=== PATIENT | male | born 1970 | race Caucasian/White ===

== ENCOUNTER 2016-08-08 21:15 | Inpatient (IN) | payer BC ==
[2016-08-08] MEDS ORDERED: Nitroglycerin TAB 0.4 MG* 0.4 MG TAB ONE (21:59)
[2016-08-08] MEDS ORDERED: Ticagrelor* 90 MG TAB PO ONE ×2 (22:00→22:01)
[2016-08-08] MEDS ORDERED: nitroGLYCERIN DRIP* 0 ML ONE (22:00)
[2016-08-08] MEDS ORDERED: Aspirin Low Dose CHEW TAB* 81 MG ONE (22:00)
[2016-08-08] MEDS ORDERED: Heparin for STEMI(*) 5,000 UNITS/ML 1 ML VIAL IV ONE ×2 (22:00→22:01)
[2016-08-08] MEDS ORDERED: Aspirin Low Dose CHEW TAB* 81 MG PO ONE (22:01)
[2016-08-08 22:16] LABS: Hematocrit 42 % (42-52); Hemoglobin 14.2 g/dl (14.0-18.0); Mean Corpuscular HGB Conc 34 g/dl (31-36); Mean Corpuscular Hemoglobin 32 pg (27-31); Mean Corpuscular Volume 94 fL (80-94); Mean Platelet Volume 8 um3 (7.4-10.4); Red Blood Count 4.47 10^6/ul (4.0-5.4); Red Cell Distribution Width 13 % (10.5-15); White Blood Count 21.6 10^3/ul (3.5-10.8)
[2016-08-08 22:17] LABS: Add Diff/Slide Review? Manual Diff Added; Comments Flag Yes
[2016-08-08] MEDS ORDERED: fentaNYL* 50 MCG/ML 2 ML VIAL (100 MCG VIAL) ONE (22:17)
[2016-08-08] MEDS ORDERED: Midazolam* 1 MG/ML 5 ML VIAL (5 MG) ONE (22:17)
[2016-08-08] MEDS ORDERED: Iohexol 350 (CONTRAST) 200 ML MDV IV ONE (22:17)
[2016-08-08] MEDS ORDERED: Lidocaine 1% INJ* 10 MG/ML 30 ML SDV ONE (22:17)
[2016-08-08] MEDS ORDERED: Heparin 2 UNITS/ML IVPREMIX* 3,000 ML IV ONE (22:17)
[2016-08-08] MEDS ORDERED: nitroGLYCERIN DRIP* 250 ML ONE (22:18)
--- NOTE | 2016-08-08 22:27 | RAD ---
Indication: Mucous, chest pain. Single frontal view of the chest performed at 2217 hours was reviewed. Comparison is made with previous exam dated August 06, 2015. No mediastinal shift is noted. Heart is of normal size and configuration. Lung leslie appear clear. IMPRESSION: NO ACTIVE CARDIOPULMONARY DISEASE IS NOTED.
[2016-08-08 22:31] LABS: Albumin 3.9 g/dL (3.2-5.2); BUN/Creatinine Ratio 18.2 (8-20); Calcium 9.1 mg/dL (8.6-10.3); EGFR African American 120.4 (>60); EGFR Non-African American 93.6 (>60); Globulin 2.6 g/dL (2-4); Potassium 4.9 mmol/L (3.5-5.0); Total Bilirubin 0.8 mg/dL (0.2-1.0); Total Protein 6.5 g/dL (6.4-8.9)
[2016-08-08 22:36] LABS: Troponin I 0.06 ng/mL (<0.04)
[2016-08-08 22:37] LABS: Add Path Review? YES; Neutrophil % 92 % (38-83); Toxic Granulation 2+
--- NOTE | 2016-08-08 22:39 | ED ---
coleman Ho Timothy, scribed for Abhi Souza MD on 08/08/16 at 2202 . HPI Cardiac - HPI Summary HPI Summary: Luke Beavers Sr. is a 46 yo male presenting to [facility] with chest tightness since 0800 this morning accompanied by left leg and right arm numbness. He states he has a bad back and neck and assumed the numbness would resolve, but it has not. His MHx includes arthritis in his neck, spondylosis in his back, asthma, COPD, tobacco use. He has not been able to afford inhalers. - History of Current Complaint Chief Complaint: EDUpperRespComplaint Stated Complaint: CHEST TIGHT/LT LEG RT ARM NUMBNESS Time Seen by Provider: 08/08/16 21:57 Hx Obtained From: Patient Onset/Duration: Started Hours Ago Time of Onset: 08:00 Timing: Constant Initial Severity: Moderate Current Severity: Moderate Pain Intensity: 0 Pain Scale Used: 0-10 Numeric Chest Pain Location: Diffuse Chest Pain Radiates: No Character: Tightness Aggravating Factor(s): Nothing Alleviating Factor(s): Nothing Associated Signs and Symptoms: Positive: Chest Pain - tightness, Numbness - left leg and right arm - Allergy/Home Medications Allergies/Adverse Reactions: Allergies Allergy/AdvReac Type Severity Reaction Status Date / Time Sulfa Antibiotics Allergy Intermediate Unknown Verified 08/08/16 21:24 Reaction Details Home Medications: Home Medications NK [No Home Medications Reported] 08/08/16 [History Confirmed 08/08/16] PMH/Surg Hx/FS Hx/Imm Hx Endocrine/Hematology History: Denies: Hx Diabetes Cardiovascular History: Denies: Hx Hypertension, Hx Myocardial Infarction Psychiatric History: Denies: Hx Eating Disorder, Hx of Violent Episodes Against Others - Immunization History Date of Tetanus Vaccine: unknown Infectious Disease History: No Infectious Disease History: Denies: Traveled Outside the [place] in Last 30 Days - Family History Known Family History: Positive: Cardiac Disease - Social History Alcohol Use: Weekly Substance Use Type: Reports: None, Other Substance Use Comment - Amount & Last Used: unknown Smoking Status (MU): Heavy Every Day Tobacco Smoker Review of Systems Constitutional: Negative Eyes: Negative ENT: Negative Positive: Chest Pain - chest tightness Respiratory: Negative Gastrointestinal: Negative Genitourinary: Negative Musculoskeletal: Negative Skin: Negative Positive: Numbness - left leg, right arm Psychological: Normal All Other Systems Reviewed And Are Negative: Yes NIH Scale - NIH Scale Level of Consciousness: Alert/Keenly Responsive Ask Patient the Month and His/Her Age: Both Correct Ask Pt to Open/Close Eyes and Marketing Operations Specialist/Release Non-Paretic Hand: Both Correctly Best Gaze (Only Horizontal Eye Movement): Normal Visual Field Testing: No Visual Loss Facial Paresis-Pt to Smile & Close Eyes or Grimace Symmetry: Normal/Symmetrical Physical Exam Triage Information Reviewed: Yes Vital Signs On Initial Exam: Initial Vitals Temp Pulse Resp BP Pulse Ox 99.1 F 89 15 146/88 99 08/08/16 21:18 08/08/16 21:18 08/08/16 21:18 08/08/16 21:18 08/08/16 21:18 Vital Signs Reviewed: Yes Appearance: Positive: Ill-Appearing, Pain Distress - mild discomfort, Thin Skin: Positive: Warm, Dry Head/Face: Positive: Normal Head/Face Inspection Eyes: Positive: JENNIE ENT: Positive: Hearing grossly normal Neck: Positive: Supple Respiratory/Lung Sounds: Positive: Clear to Auscultation, Breath Sounds Present Cardiovascular: Positive: RRR Abdomen Description: Positive: Nontender, Soft Bowel Sounds: Positive: Present Musculoskeletal: Positive: Strength/ROM Intact Neurological: Positive: Alert, Oriented to Person Place, Time Psychiatric: Positive: Affect/Mood Appropriate Diagnostics - Vital Signs Vital Signs Temp Pulse Resp BP Pulse Ox 08/08/16 21:21 99.1 F 90 14 146/88 99 08/08/16 21:18 99.1 F 89 15 146/88 99 - Laboratory Lab Results: Lab Results 08/08/16 08/08/16 08/08/16 Range/Units 22:05 22:05 22:05 WBC 21.6 H (3.5-10.8) 10^3/ul RBC 4.47 (4.0-5.4) 10^6/ul Hgb 14.2 (14.0-18.0) g/dl Hct 42 (42-52) % MCV 94 (80-94) fL MCH 32 H (27-31) pg MCHC 34 (31-36) g/dl RDW 13 (10.5-15) % Plt Count 368 (150-450) 10^3/ul MPV 8 (7.4-10.4) um3 Absolute Neuts (auto) Pending Absolute Lymphs (auto) Pending Absolute Monos (auto) Pending Absolute Eos (auto) Pending Absolute Basos (auto) Pending Absolute Nucleated RBC Pending Neutrophils % 92 H (38-83) % Lymphocytes % 4 L (25-47) % Monocytes % 4 (0-13) % Toxic Granulation 2+ Normal RBC Morphology Not Reportable Hem Pathologist Commnt Pending INR (Anticoag Therapy) 0.99 (0.89-1.11) APTT 21.8 L (26.0-36.3) seconds Sodium 134 (133-145) mmol/L Potassium 4.9 (3.5-5.0) mmol/L Chloride 99 L (101-111) mmol/L Carbon Dioxide 29 (22-32) mmol/L Anion Gap 6 (2-11) mmol/L BUN 16 (6-24) mg/dL Creatinine 0.88 (0.67-1.17) mg/dL Est GFR ( Amer) 120.4 (>60) Est GFR (Non-Af Amer) 93.6 (>60) BUN/Creatinine Ratio 18.2 (8-20) Glucose 117 H (70-100) mg/dL Lactic Acid (0.5-2.0) mmol/L Calcium 9.1 (8.6-10.3) mg/dL Total Bilirubin 0.80 (0.2-1.0) mg/dL AST 96 H (13-39) U/L ALT 47 (7-52) U/L Alkaline Phosphatase 58 (34-104) U/L Total Creatine Kinase Pending CK-MB (CK-2) 84.8 H (0.6-6.3) ng/mL Troponin I 0.06 H* (<0.04) ng/mL B-Natriuretic Peptide ( - 100) pg/mL Total Protein 6.5 (6.4-8.9) g/dL Albumin 3.9 (3.2-5.2) g/dL Globulin 2.6 (2-4) g/dL Albumin/Globulin Ratio 1.5 (1-3) LDL Cholesterol Direct 78 mg/dL 08/08/16 08/08/16 Range/Units 22:05 22:05 WBC (3.5-10.8) 10^3/ul RBC (4.0-5.4) 10^6/ul Hgb (14.0-18.0) g/dl Hct (42-52) % MCV (80-94) fL MCH (27-31) pg MCHC (31-36) g/dl RDW (10.5-15) % Plt Count (150-450) 10^3/ul MPV (7.4-10.4) um3 Absolute Neuts (auto) Absolute Lymphs (auto) Absolute Monos (auto) Absolute Eos (auto) Absolute Basos (auto) Absolute Nucleated RBC Neutrophils % (38-83) % Lymphocytes % (25-47) % Monocytes % (0-13) % Toxic Granulation Normal RBC Morphology Hem Pathologist Commnt INR (Anticoag Therapy) (0.89-1.11) APTT (26.0-36.3) seconds Sodium (133-145) mmol/L Potassium (3.5-5.0) mmol/L Chloride (101-111) mmol/L Carbon Dioxide (22-32) mmol/L Anion Gap (2-11) mmol/L BUN (6-24) mg/dL Creatinine (0.67-1.17) mg/dL Est GFR ( Amer) (>60) Est GFR (Non-Af Amer) (>60) BUN/Creatinine Ratio (8-20) Glucose (70-100) mg/dL Lactic Acid 1.8 (0.5-2.0) mmol/L Calcium (8.6-10.3) mg/dL Total Bilirubin (0.2-1.0) mg/dL AST (13-39) U/L ALT (7-52) U/L Alkaline Phosphatase (34-104) U/L Total Creatine Kinase CK-MB (CK-2) (0.6-6.3) ng/mL Troponin I (<0.04) ng/mL B-Natriuretic Peptide 126 H ( - 100) pg/mL Total Protein (6.4-8.9) g/dL Albumin (3.2-5.2) g/dL Globulin (2-4) g/dL Albumin/Globulin Ratio (1-3) LDL Cholesterol Direct mg/dL Result Diagrams: 08/09/16 04:15 08/09/16 04:15 Lab Statement: Any lab studies that have been ordered have been reviewed, and results considered in the medical decision making process. - Radiology CXR Xray Interpretation: No Acute Changes - IMPRESSION: NO ACTIVE CARDIOPULMONARY DISEASE IS NOTED. Radiology Interpretation Completed By: Radiologist - EKG 2153 Cardiac Rate: NL - 80 BPM EKG Interpretation: ST elevation V2 V3, STEMI. Disposition - Course Assessment/Plan: Luke Beavers Sr is a 46 yo male [place] [facility] [place] with chest tightness and numbness in his right arm and left leg. His EKG suggests a STEMI, and a code STEMI was called at 2200. He was immediately administered aspirin, heparin, NTG, and Brilinta. His CXR suggests no acute disease. After clinical examination and review of his EKG, imaging, and lab studies, as well as discussion with Dr. Gomez, he will be admitted to [facility] [place] for [place]. - Differential Dx - Cardiopulmonary Differential Diagnoses - Cardiopulmonary: Myocardial Infarction, Other - STEMI - Diagnoses Provider Diagnoses: STEMI (ST elevation myocardial infarction) During the Visit The Following Alert/Code Occurred: STEMI - Physician Notifications Discussed Care Of Patient With: 2220 - Dr. oGmez (interventionalist) - discussed care of Pt, will admit Pt for STEMI. Instructed by Provider To: Admit As Inpatient - Critical Care Time Critical Care Time: 30-74 min Discharge - Discharge Plan Condition: Fair Disposition: ADMITTED TO [facility] The documentation as recorded by the coleman huerta Timothy accurately reflects the service I personally performed and the decisions made by me, Abhi Souza MD.
[2016-08-08] MEDS: NS 0.9% 1000 ML* 1,000 ML IV SCH (23:45)
[2016-08-09] MEDS ORDERED: Piperac/Tazob 3.375 gm in NS* 3.375 GM/100 ML BAG IVPB ONE (00:30)
--- NOTE | 2016-08-09 00:50 | HP ---
H&P (Free Text) History and Physical: PCP: none Date/Time of Evaluation: 08/09/2016 0015 CC: chest pain HPI: Mr Beavers is a 46YO male HX COPD & ankylosing spondylitis who reports feeling poorly for the past week primarily from fatigue and cannot further characterize. He awoke this AM with (not from) non-radiating R chest pressure which waxed and waned all day. He had some palpitations, but denies SOB, N/V, light-headedness, or sweats. Additionally, he denies F/C, worsened cough, abdominal pain, B/U/F of urine, change in bowels, and flank pain. The pain is worse with cough, palpation, & deep inspiration. [facility] [place] [facility] at the encouragement of his girlfriend shortly after 2100. ECG showed ST elevation in the anterior leads and a STEMI was called. Troponin is 0.07. Carmelo Gomez MD interventional cardiology took him to cardiac cath noting spasm at the ostomy of the LAD resolved with nitro. Post-cath, Mr Beavers's ECG showed noticeable improvement. Per Dr Gomez a bedside ECHO showed global hypokinesia of the L ventrical and EF on cath was estimated to be 35-40%. 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; full code status FamHx: Father: [place] prior to age 65; otherwise positive for DM2 ROS: as above, otherwise reviewed and all were negative Constitutional: NAD, normally developed, well-nourished, unkempt white male appearing older than his stated age vitals: Vital Signs Temp 37.3 C 08/08/16 21:21 Pulse 90 08/08/16 21:21 Resp 14 08/08/16 21:21 BP 146/88 08/08/16 21:21 Pulse Ox 99 08/08/16 21:21 Intake & Output 08/08/16 08/08/16 08/09/16 11:59 23:59 11:59 Weight 63.503 kg HEENM: atraumatic; sclera/conjunctiva: non-icteric/clear; hearing: clinically intact; oropharynx: clear, mucosa moist Neck: soft tissue: non-tender; thyroid: normal Pulmonary: clear to auscultation bilaterally, good aeration, no accessory muscle use CV: RR/RR, normal S1S2, no carotid bruit, no jugular venous distention, 2+ B DP/ PT, no edema Abdominal: soft, non-distended, non-tender, no rebound/guarding/rigidity, normoactive bowel sounds, no hepatosplenomegaly or masses, no costovertebral angle tenderness Musculoskeletal: general: grossly intact; gait: currently unable to ambulate 2nd being immediately post-cath Integumental: normal appearance and texture of exposed skin Psychiatric orientation: AA&O to PPS affect: calm mood: cooperative eye contact: fair to good content: reliable responses: timely insight: fair Testing: Lab Results 08/08/16 08/08/16 08/08/16 Range/Units 22:05 22:05 22:05 WBC 21.6 H (3.5-10.8) 10^3/ul RBC 4.47 (4.0-5.4) 10^6/ul Hgb 14.2 (14.0-18.0) g/dl Hct 42 (42-52) % MCV 94 (80-94) fL MCH 32 H (27-31) pg MCHC 34 (31-36) g/dl RDW 13 (10.5-15) % Plt Count 368 (150-450) 10^3/ul MPV 8 (7.4-10.4) um3 Absolute Neuts (auto) 19.9 H (1.5-7.7) 10^3/ul Absolute Lymphs (auto) 0.9 L (1.0-4.8) 10^3/ul Absolute Monos (auto) 0.9 H (0-0.8) 10^3/ul Absolute Eos (auto) 0 (0-0.6) 10^3/ul Absolute Basos (auto) 0 (0-0.2) 10^3/ul Absolute Nucleated RBC 0 10^3/ul Neutrophils % 92 H (38-83) % Lymphocytes % 4 L (25-47) % Monocytes % 4 (0-13) % Toxic Granulation 2+ Normal RBC Morphology Not Reportable Hem Pathologist Commnt Pending INR (Anticoag Therapy) 0.99 (0.89-1.11) APTT 21.8 L (26.0-36.3) seconds Sodium 134 (133-145) mmol/L Potassium 4.9 (3.5-5.0) mmol/L Chloride 99 L (101-111) mmol/L Carbon Dioxide 29 (22-32) mmol/L Anion Gap 6 (2-11) mmol/L BUN 16 (6-24) mg/dL Creatinine 0.88 (0.67-1.17) mg/dL Est GFR ( Amer) 120.4 (>60) Est GFR (Non-Af Amer) 93.6 (>60) BUN/Creatinine Ratio 18.2 (8-20) Glucose 117 H (70-100) mg/dL Lactic Acid (0.5-2.0) mmol/L Calcium 9.1 (8.6-10.3) mg/dL Total Bilirubin 0.80 (0.2-1.0) mg/dL AST 96 H (13-39) U/L ALT 47 (7-52) U/L Alkaline Phosphatase 58 (34-104) U/L Total Creatine Kinase 3527 H (10-223) U/L CK-MB (CK-2) 84.8 H (0.6-6.3) ng/mL Troponin I 0.06 H* (<0.04) ng/mL B-Natriuretic Peptide ( - 100) pg/mL Total Protein 6.5 (6.4-8.9) g/dL Albumin 3.9 (3.2-5.2) g/dL Globulin 2.6 (2-4) g/dL Albumin/Globulin Ratio 1.5 (1-3) LDL Cholesterol Direct 78 mg/dL 08/08/16 08/08/16 Range/Units 22:05 22:05 WBC (3.5-10.8) 10^3/ul RBC (4.0-5.4) 10^6/ul Hgb (14.0-18.0) g/dl Hct (42-52) % MCV (80-94) fL MCH (27-31) pg MCHC (31-36) g/dl RDW (10.5-15) % Plt Count (150-450) 10^3/ul MPV (7.4-10.4) um3 Absolute Neuts (auto) (1.5-7.7) 10^3/ul Absolute Lymphs (auto) (1.0-4.8) 10^3/ul Absolute Monos (auto) (0-0.8) 10^3/ul Absolute Eos (auto) (0-0.6) 10^3/ul Absolute Basos (auto) (0-0.2) 10^3/ul Absolute Nucleated RBC 10^3/ul Neutrophils % (38-83) % Lymphocytes % (25-47) % Monocytes % (0-13) % Toxic Granulation Normal RBC Morphology Hem Pathologist Commnt INR (Anticoag Therapy) (0.89-1.11) APTT (26.0-36.3) seconds Sodium (133-145) mmol/L Potassium (3.5-5.0) mmol/L Chloride (101-111) mmol/L Carbon Dioxide (22-32) mmol/L Anion Gap (2-11) mmol/L BUN (6-24) mg/dL Creatinine (0.67-1.17) mg/dL Est GFR ( Amer) (>60) Est GFR (Non-Af Amer) (>60) BUN/Creatinine Ratio (8-20) Glucose (70-100) mg/dL Lactic Acid 1.8 (0.5-2.0) mmol/L Calcium (8.6-10.3) mg/dL Total Bilirubin (0.2-1.0) mg/dL AST (13-39) U/L ALT (7-52) U/L Alkaline Phosphatase (34-104) U/L Total Creatine Kinase (10-223) U/L CK-MB (CK-2) (0.6-6.3) ng/mL Troponin I (<0.04) ng/mL B-Natriuretic Peptide 126 H ( - 100) pg/mL Total Protein (6.4-8.9) g/dL Albumin (3.2-5.2) g/dL Globulin (2-4) g/dL Albumin/Globulin Ratio (1-3) LDL Cholesterol Direct mg/dL ECG, personally reviewed: NSR rate 80, marked improvement in anterior ST elevation post-cath, no reciprocal changes CXR, personally reviewed: IMPRESSION: NO ACTIVE CARDIOPULMONARY DISEASE IS NOTED. Impression: 46M presents with ECG concerning for STEMI after a week of vague illness, cath revealed clean vessels but identified LAD ostomy spasm relieved with nitro DIAGNOSIS & PLAN Primary chest pain : suspect cocaine induced spasm : check urine drug screen : plan on starting carvedilol 3.125mg BID if UDS negative for cocaine : consider initiating low dose ACEI in AM, if BP will tolerate : formal ECHO in AM : nitro patch 0.1 : cardiology service agrees to follow : supplemental oxygen : supportive care : ICU monitoring : trend cardiac markers leukocytosis : ? etiology : empiric piperacillin/tazobactam : blood CXs Secondary COPD, not in exacerbation : albuterol nebs PRN : mometasone/formoterol : tiotropium : incentive spirometry ankylosing spondylitis : pain control Admission Rational: ICU monitoring of cardiac status in patient at risk for sudden severe decompensation DVTp: SCDs Code Status: full
[2016-08-09] MEDS ORDERED: Albuterol 2.5 MG/3 ML NEB.SOL* (0.083%) INH PRN (00:53)
[2016-08-09] MEDS ORDERED: traMADol TAB* 50 MG PO PRN (00:55)
[2016-08-09 00:59] LABS: Benzodiazepine Urine Screen None Detected (None Detect)
[2016-08-09] MEDS ORDERED: Spiriva Inhaler DEVICE* 1 EACH DEVICE ONE (01:00)
[2016-08-09] MEDS: Nitroglycerin 0.1 mg/Hr PATCH* (2.5 MG) TRANSDERM SCH ×2 (02:24→08:22)
[2016-08-09] MEDS: Mometasone/Formoter 200/5 MDI INH SCH ×3 (02:27→20:35)
[2016-08-09] MEDS: Tiotropium CAP.INH* CAP.INH/18 MCG INH SCH ×2 (02:28→08:22)
[2016-08-09 04:29] LABS: Add Diff/Slide Review? Slide Review Added; Comments Flag Yes; Hematocrit 39 % (42-52); Hemoglobin 13.5 g/dl (14.0-18.0); Mean Corpuscular HGB Conc 35 g/dl (31-36); Mean Corpuscular Hemoglobin 32 pg (27-31); Mean Corpuscular Volume 93 fL (80-94); Mean Platelet Volume 8 um3 (7.4-10.4); Red Blood Count 4.22 10^6/ul (4.0-5.4); Red Cell Distribution Width 13 % (10.5-15); White Blood Count 14.3 10^3/ul (3.5-10.8)
[2016-08-09] MEDS ORDERED: Piperac/Tazob 3.375 gm in NS* 3.375 GM/100 ML BAG IVPB SCH (04:30)
[2016-08-09 04:43] LABS: Albumin 3.6 g/dL (3.2-5.2); BUN/Creatinine Ratio 18.9 (8-20); Calcium 8.6 mg/dL (8.6-10.3); EGFR African American 147.1 (>60); EGFR Non-African American 114.4 (>60); Globulin 2.2 g/dL (2-4); Potassium 4.2 mmol/L (3.5-5.0); Total Bilirubin 0.9 mg/dL (0.2-1.0); Total Protein 5.8 g/dL (6.4-8.9)
[2016-08-09 04:50] LABS: Troponin I 0.06 ng/mL (<0.04)
[2016-08-09] MEDS: Lisinopril TAB* 5 MG PO SCH (09:27)
--- NOTE | 2016-08-09 09:48 | PN ---
Subjective Date of Service: 08/09/16 Interval History: Pt is feeling ok this AM. He states he still has low level chest discomfort. He still claims he did not use cocaine but someone must have "slipped" him something. Objective Active Medications: Albuterol (Ventolin 2.5 Mg/3 Ml Neb.Hannah*) 2.5 mg INH Q2H PRN PRN Reason: SOB/WHEEZING Sodium Chloride (Ns 0.9% 1000 Ml*) 1,000 mls @ 100 mls/hr IV .per rate [facility] Last Admin: 08/08/16 23:45 Dose: 100 mls/hr Piperacillin Sod/Tazobactam Sod (Zosyn 3.375 Gm In Ns Premix*) 3.375 gm in 100 mls @ 25 mls/hr IVPB Q8H [facility] Last Admin: 08/09/16 04:41 Dose: 25 mls/hr Lisinopril (Prinivil Tab*) 5 mg PO DAILY [facility] Last Admin: 08/09/16 09:27 Dose: 5 mg Mometasone Furoate/Formoterol Fumar (Dulera 200/5 Mdi*) 2 puff INH BID [facility] Last Admin: 08/09/16 08:21 Dose: 2 puff Nitroglycerin (Nitroglycerin 2.5 Mg Patch*) 1 patch TRANSDERM DAILY [facility] Last Admin: 08/09/16 08:22 Dose: 1 patch Pharmacy Profile Note (Nitro Patch/Oint Remove*) 1 note PATCH OFF 2100 [facility] Tiotropium [place] (Spiriva Cap.Inh*) 1 cap INH DAILY [facility] Last Admin: 08/09/16 08:22 Dose: 1 cap Tramadol HCl (Ultram*) 50 mg PO Q6H PRN PRN Reason: PAIN Last Admin: 08/09/16 04:59 Dose: 50 mg Vital Signs 08/09/16 08/09/16 08/09/16 00:00 00:10 00:30 Temperature 98.8 F Pulse Rate 99 86 81 Respiratory 20 21 19 Rate Blood Pressure 143/92 137/85 132/87 (mmHg) O2 Sat by Pulse 95 94 96 Oximetry 08/09/16 08/09/16 08/09/16 01:00 01:30 02:00 Temperature Pulse Rate 75 75 77 Respiratory 13 13 16 Rate Blood Pressure 138/88 122/80 132/81 (mmHg) O2 Sat by Pulse 95 95 92 Oximetry 08/09/16 08/09/16 08/09/16 02:30 03:00 03:30 Temperature Pulse Rate 81 79 75 Respiratory 15 15 14 Rate Blood Pressure 123/84 133/84 135/83 (mmHg) O2 Sat by Pulse 95 95 94 Oximetry 08/09/16 08/09/16 08/09/16 04:00 04:30 05:00 Temperature 99.3 F Pulse Rate 79 89 85 Respiratory 15 17 22 Rate Blood Pressure 128/84 125/76 130/80 (mmHg) O2 Sat by Pulse 94 95 96 Oximetry 08/09/16 08/09/16 08/09/16 06:00 07:00 07:35 Temperature Pulse Rate 75 80 Respiratory 14 14 12 Rate Blood Pressure 118/70 130/83 (mmHg) O2 Sat by Pulse 93 92 Oximetry 08/09/16 08/09/16 08/09/16 08:00 08:11 08:50 Temperature 98.4 F Pulse Rate 72 73 Respiratory 13 14 14 Rate Blood Pressure 131/89 (mmHg) O2 Sat by Pulse 96 98 Oximetry 08/09/16 09:00 Temperature Pulse Rate 69 Respiratory 13 Rate Blood Pressure 127/84 (mmHg) O2 Sat by Pulse 95 Oximetry Oxygen Devices in Use Now: None Appearance: Middle aged male who appears older than his stated age, sitting up in bed, NAD Eyes: No Scleral Icterus Ears/Nose/Mouth/Throat: Mucous Membranes Moist Respiratory: Symmetrical Chest Expansion and Respiratory Effort, Clear to Auscultation Cardiovascular: NL Sounds; No Murmurs; No JVD, RRR, No Edema Abdominal: NL Sounds; No Tenderness; No Distention Extremities: No Clubbing, Cyanosis Skin: No Rash or Ulcers, No Nodules or Sclerosis Neurological: Alert and Oriented x 3 Result Diagrams: 08/09/16 04:15 08/09/16 04:15 Additional Lab and Data: Lab Results 08/08/16 08/08/16 08/08/16 Range/Units 22:05 22:05 22:05 WBC 21.6 H (3.5-10.8) 10^3/ul RBC 4.47 (4.0-5.4) 10^6/ul Hgb 14.2 (14.0-18.0) g/dl Hct 42 (42-52) % MCV 94 (80-94) fL MCH 32 H (27-31) pg MCHC 34 (31-36) g/dl RDW 13 (10.5-15) % Plt Count 368 (150-450) 10^3/ul MPV 8 (7.4-10.4) um3 Absolute Neuts (auto) Pending Absolute Lymphs (auto) Pending Absolute Monos (auto) Pending Absolute Eos (auto) Pending Absolute Basos (auto) Pending Absolute Nucleated RBC Pending Neutrophils % 92 H (38-83) % Lymphocytes % 4 L (25-47) % Monocytes % 4 (0-13) % Toxic Granulation 2+ Normal RBC Morphology Not Reportable Hem Pathologist Commnt Pending INR (Anticoag Therapy) 0.99 (0.89-1.11) APTT 21.8 L (26.0-36.3) seconds Sodium 134 (133-145) mmol/L Potassium 4.9 (3.5-5.0) mmol/L Chloride 99 L (101-111) mmol/L Carbon Dioxide 29 (22-32) mmol/L Anion Gap 6 (2-11) mmol/L BUN 16 (6-24) mg/dL Creatinine 0.88 (0.67-1.17) mg/dL Est GFR ( Amer) 120.4 (>60) Est GFR (Non-Af Amer) 93.6 (>60) BUN/Creatinine Ratio 18.2 (8-20) Glucose 117 H (70-100) mg/dL Lactic Acid (0.5-2.0) mmol/L Calcium 9.1 (8.6-10.3) mg/dL Total Bilirubin 0.80 (0.2-1.0) mg/dL AST 96 H (13-39) U/L ALT 47 (7-52) U/L Alkaline Phosphatase 58 (34-104) U/L Total Creatine Kinase Pending CK-MB (CK-2) 84.8 H (0.6-6.3) ng/mL Troponin I 0.06 H* (<0.04) ng/mL B-Natriuretic Peptide ( - 100) pg/mL Total Protein 6.5 (6.4-8.9) g/dL Albumin 3.9 (3.2-5.2) g/dL Globulin 2.6 (2-4) g/dL Albumin/Globulin Ratio 1.5 (1-3) LDL Cholesterol Direct 78 mg/dL 08/08/16 08/08/16 Range/Units 22:05 22:05 WBC (3.5-10.8) 10^3/ul RBC (4.0-5.4) 10^6/ul Hgb (14.0-18.0) g/dl Hct (42-52) % MCV (80-94) fL MCH (27-31) pg MCHC (31-36) g/dl RDW (10.5-15) % Plt Count (150-450) 10^3/ul MPV (7.4-10.4) um3 Absolute Neuts (auto) Absolute Lymphs (auto) Absolute Monos (auto) Absolute Eos (auto) Absolute Basos (auto) Absolute Nucleated RBC Neutrophils % (38-83) % Lymphocytes % (25-47) % Monocytes % (0-13) % Toxic Granulation Normal RBC Morphology Hem Pathologist Commnt INR (Anticoag Therapy) (0.89-1.11) APTT (26.0-36.3) seconds Sodium (133-145) mmol/L Potassium (3.5-5.0) mmol/L Chloride (101-111) mmol/L Carbon Dioxide (22-32) mmol/L Anion Gap (2-11) mmol/L BUN (6-24) mg/dL Creatinine (0.67-1.17) mg/dL Est GFR ( Amer) (>60) Est GFR (Non-Af Amer) (>60) BUN/Creatinine Ratio (8-20) Glucose (70-100) mg/dL Lactic Acid 1.8 (0.5-2.0) mmol/L Calcium (8.6-10.3) mg/dL Total Bilirubin (0.2-1.0) mg/dL AST (13-39) U/L ALT (7-52) U/L Alkaline Phosphatase (34-104) U/L Total Creatine Kinase CK-MB (CK-2) (0.6-6.3) ng/mL Troponin I (<0.04) ng/mL B-Natriuretic Peptide 126 H ( - 100) pg/mL Total Protein (6.4-8.9) g/dL Albumin (3.2-5.2) g/dL Globulin (2-4) g/dL Albumin/Globulin Ratio (1-3) LDL Cholesterol Direct mg/dL Microbiology and Other Data: Microbiology 08/09/16 03:00 Nasal Screen MRSA (PCR)([facility]) - Final Nasal Mrsa Negative Assess/Plan/Problems-Billing Mr Beavers is a 46 yo M who has a h/o tobacco abuse, COPD and ankylosing spondylitis who presented to the ER with chest pain and was found to have ST elevatations concerning for STEMI. - Patient Problems (1) Coronary artery vasospasm Current Visit: Yes Status: Acute Code(s): I20.1 - ANGINA PECTORIS WITH DOCUMENTED SPASM SNOMED Code(s): 44893589 Comment: The patient was found to have coronary artery vasospasm of the ostium of the LAD. His urine drug screen was positive for cocaine. I suspect the spasm was secondary to the cocaine. Echo results are pending. Transfer to [facility]. Start lisinopril. Monitor again overnight. Will discuss with Dr. Gomez about how long to continue the nitro patch. (2) COPD (chronic obstructive pulmonary disease) Current Visit: Yes Status: Acute Code(s): J44.9 - CHRONIC OBSTRUCTIVE PULMONARY DISEASE, UNSPECIFIED SNOMED Code(s): 30908293 Comment: No signs of exacerbation at this time. Continue inhaler/neb regimen. (3) Tobacco abuse Current Visit: Yes Status: Acute Code(s): Z72.0 - TOBACCO USE SNOMED Code( s): 108087068 Comment: Pt states he has been trying to quit. Continue to encourage smoking cessation. (4) Ankylosing spondylitis Current Visit: Yes Status: Acute Code(s): M45.9 - ANKYLOSING SPONDYLITIS OF UNSPECIFIED SITES IN SPINE SNOMED Code(s): 5651017 Comment: Pt does not appear to be on any therapy for this. (5) DVT prophylaxis Current Visit: Yes Status: Acute Code(s): NFN8046 - SNOMED Code(s): 029373351 Comment: Start SQ heparin (6) Full code status Current Visit: Yes Status: Acute Code(s): Z78.9 - OTHER SPECIFIED HEALTH STATUS SNOMED Code(s): 920750276
[2016-08-09 10:22] LABS: Troponin I 0.04 ng/mL (<0.04)
--- NOTE | 2016-08-09 11:50 | ECHO ---
Patient: RICHARD LANDIN [facility] Rec#: [id number] : 1970 Date: 08/09/2016 Age: 46y Height: 167.64 cm / 66.0 in Weight: 63.5 kg / 140.0 lbs Sex: M BSA: 1.72 Room#: [facility] 11 Admit Date#: 08/08/2016 Type: Inpatient Referring: Garrett Weiss MD Reading: Kwaku Gomez MD [employer] Set Up Operator: Page Potter RD,RDMS Transthoracic Echocardiogram Indication: Cardiomyopathy BP: 118/70 HR: 74 Rhythm: NSR Indications Cardiomyopathy Findings History: S/P cath. COPD, ankylosing spodilitis, smoker. Technical Comments: The study quality is good. Left Ventricle: The left ventricular chamber size is normal. Mild concentric left ventricular hypertrophy is observed. Mild global hypokinesis of the left ventricle is observed. There is mildly decreased left ventricular systolic function. The estimated ejection fraction is 40-45%. Normal left ventricular diastolic filling is observed. Left Atrium: The left atrium is slightly dilated. Right Ventricle: The right ventricular chamber size and systolic function are within normal limits. Right Atrium: The right atrial cavity size is normal. Aortic Valve: The aortic valve is trileaflet. There is a trace of aortic regurgitation. There is no evidence of aortic stenosis. Mitral Valve: The mitral valve leaflets are mildly thickened. There is no evidence of mitral regurgitation. There is no evidence of mitral stenosis. Tricuspid Valve: The tricuspid valve leaflets are normal. There is trace tricuspid regurgitation. Unable to estimate the right ventricular systolic pressure. Pulmonic Valve: The pulmonic valve appears normal. There is a trace pulmonic regurgitation. Pericardium: There is no significant pericardial effusion. Aorta: The aortic root appears normal. There is no dilatation of the aortic arch. Pulmonary Artery: The main pulmonary artery is not well visualized. Venous: The inferior vena cava is dilated. There is an approximate 50% respiratory change in the inferior vena cava dimension. Conclusions Mild concentric left ventricular hypertrophy is observed. Mild global hypokinesis of the left ventricle is observed. There is mildly decreased left ventricular systolic function. The estimated ejection fraction is 40-45%. No significant valvular disease: There is a trace of aortic regurgitation. There is trace tricuspid regurgitation. There is a trace pulmonic regurgitation. No reports of prior studies offered for comparison Measurements Name Value Normal Range Ao root diameter (MM) 2 cm - LA dimension (AP) MM 2.78 cm - LA:Ao ratio (MM) 1.39 ratio - Name Value Normal Range RVIDd (AP) 2D 2.8 cm (0.9 - 2.6) RVDdMajor (2D) 2.8 cm (2.2 - 4.4) RAd ISD 4CH 3.9 cm (3.4 - 4.9) RA (A4C)W 3.7 cm (2.9 - 4.6) IVSd (2D) 1.1 cm (0.6 - 1) LVPWd (2D) 1.2 cm (0.6 - 1) LVIDd (2D) 4.6 cm (3.6 - 5.4) LVIDs (2D) 4.1 cm - LV FS (2D) 13 % (25 - 45) Aortic Annulus 2.1 cm (1.4 - 2.6) Ao root diameter (2D) 3.2 cm (2.1 - 3.5) Ascending Ao 2.8 cm (2.1 - 3.4) Aortic arch 3.2 cm (1.8 - 3.4) LA dimension (AP) 2D 3 cm (2.3 - 3.8) LAd ISD 4CH 4.4 cm (2.9 - 5.3) LA ISD 4CH W 4.9 cm (2.5 - 4.5) Name Value Normal Range LA ESV SP 4CH (A/L) 64.57 ml - LA ESV SP 2CH (A/L) 41.38 ml - LA ESV BP (A/L) 54.82 ml - LA ESV BP (A/L) index 32 ml/m2 - LA ESV SP 4CH (MOD) 55.05 ml - LA ESV SP 2CH (MOD) 35.18 ml - Name Value Normal Range MV E-wave Vmax 0.6 m/sec - MV deceleration time 137 msec - MV A-wave Vmax 0.4 m/sec - MV E:A ratio 1.3 ratio - P. vein S-wave Vmax 0.5 m/sec - P. vein D-wave Vmax 0.4 m/sec - P. vein A-wave duration 90 msec - LV septal e' Vmax 0.08 m/sec - LV lateral e' Vmax 0.1 m/sec - LV E:e' septal ratio 7.5 ratio - LV E:e' lateral ratio 6 ratio - Name Value Normal Range AV Vmax 1.2 m/sec - AV VTI 21.5 cm - AV peak gradient 6 mmHg - AV mean gradient 3.9 mmHg - LVOT Vmax 0.8 m/sec - LVOT VTI 15 cm - LVOT peak gradient 2.5 mmHg - LVOT mean gradient 1.4 mmHg - JOAQUIN Vmax 0.9 m/sec - Name Value Normal Range RAP 8 mmHg - IVC diameter 2.4 cm - Name Value Normal Range PV Vmax 0.7 m/sec - PV peak gradient 2 mmHg -
[2016-08-09] MEDS: Diltiazem TAB* 30 MG PO SCH ×3 (12:17→23:46)
[2016-08-09 15:18] LABS: C Reactive Protein 30.66 mg/L (< 5.00)
--- NOTE | 2016-08-09 15:30 | CONS ---
CARDIOLOGY CONSULT: DATE OF CONSULT: 08/09/16 REASON FOR CONSULT: Called in by Dr. Souza, emergency room physician, for anterior wall STEMI with chest discomfort. HISTORY OF PRESENT ILLNESS: The patient is a 46-year-old gentleman with no prior known cardiac history. Specifically denies any history of myocardial infarction, congestive heart failure, or significant heart rhythm disturbance. The patient states that about a month ago he had a significant viral illness that put him out of work for 4 days. After that time, he had done reasonably well until this past week when he just did not feel well at home. He could not define it. There was no chest, throat or arm discomfort but he just felt weak. On the day of presentation to the emergency room, he woke up in the morning with chest discomfort just to the right of his sternum, a tightness sensation without significant radiation to the throat or jaw, but he did have tingling in his right arm and left leg. This discomfort waxed and waned throughout the whole day. He presented to the emergency room and eventually an EKG was performed, which revealed ST segment elevation in V1 and V2 and a STEMI alert was called. Of note, there were no reciprocal changes in the inferior leads. On my presentation, he was still having some mild right-sided chest discomfort, but he himself seemed to feel it was better and when he was laying down he thought it was somewhat better; he did not appear to be in acute distress. His initial troponin was found to be 0.06, abnormal per our laboratory results. No other laboratory results were available at this time. I performed a bedside echocardiogram utilizing the ultrasound machine in the emergency room and there appeared to be global left ventricular hypokinesis with clearly a reduced ejection fraction. Given these findings, the decision was made to proceed with heart catheterization to rule out the presence of an ischemic cause of his LV dysfunction with his chest discomfort versus potentially viral, potentially any other cause. It should be noted I did ask him whether or not he had any illicit drug use, specifically asking about cocaine in the emergency room, he denied it. PAST MEDICAL HISTORY: He denied any history of hypertension, hyperlipidemia, diabetes. He has a history of COPD and ankylosing spondylitis. PAST SURGICAL HISTORY: He denies any significant surgical history. CURRENT MEDICATIONS AT HOME: None. ALLERGIES: Sulfa, for which he has an unknown reaction. FAMILY HISTORY: Father had an PR prior to the age of 65, otherwise family history included diabetes. SOCIAL HISTORY: He is a smoker, smoking 1 pack a day. Occasionally drinking alcohol. 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 Of note, he was asked as mentioned above whether or not any drug usage was mentioned and when I specifically brought up the cocaine, he actually stated, well somebody may have slipped something to me the prior night. REVIEW OF SYSTEMS: Pertinent changes to the cardiovascular laboratory. The patient denied any history of hematochezia, hematemesis, or hematuria. He denied any history of kidney disease. He denied any TIA or stroke in the past and denied any dye allergy. PHYSICAL EXAMINATION: When I saw him revealed a pleasant gentleman in mild discomfort. Vital signs revealed blood pressure 146/88, pulse in the 80s to 90s , respirations 15, O2 saturation 99% on room air. Neck was supple. No increased JVP. Carotid had fair upstroke involving without bruits. Conjunctivae are pink. Sclerae are clear. Mouth revealed moist mucosa. Lungs revealed no accessory muscle usage. There was good excursion. There was questionable mild crackles in the right base that improved somewhat with deep inspiration. Heart revealed no visible heaves, no palpable heaves or thrills. Normal S1, S2. There was no significant systolic or diastolic murmur. I did not appreciate any rub. Abdomen was soft and nontender without organomegaly. Extremities were without clubbing, cyanosis, stewart pitting edema. Of note, the patient could not fully straighten out his legs and his knees due to his ankylosing spondylitis. Femoral pulses were intact without bruits. Distal pulses intact. Neuro: The patient is alert and oriented with normal mentation. Musculoskeletal: The patient moves all extremities appropriately, but does have some restriction due to his ankylosing spondylitis. Psychological : The patient with normal affect. DIAGNOSTIC STUDIES/LAB DATA: Electrocardiogram from the emergency room revealed normal sinus rhythm, heart rate 80, VA interval was 0.15, QRS 0.08, QT 0.37, axis was +18 degrees. There was 1.5-mm ST segment elevation in V1 with close to 4-mm ST segment elevation in V2 with concave upward ST segment and there was mild J-point elevation in V3 and subtle in V4 and V5 and 6. There was no reciprocal changes noted. T-wave was flat in aVL. Chest x-ray report revealed no active cardiopulmonary disease. Laboratory result present at that time of proceeding to cardiovascular laboratory revealed a white count of 21,600, hemoglobin and hematocrit of 14.2 and 42 with a platelet count of 368,000 with a left shift noted. Chemistry was pending at that time with the exception of a troponin of 0.06. OVERALL ASSESSMENT: Luke now presents with an abnormal EKG that was clearly different than his prior EKG, which did not demonstrate the J-point elevation in the precordial leads. He has an atypical sounding chest discomfort that was present all day long. He had a troponin of only 0.06. A bedside echocardiogram revealed global left ventricular systolic dysfunction perhaps with the anterior wall worse than the proximal inferior wall, which seemed to be kendal better. We will proceed with cardiac catheterization to rule out the presence of significant coronary artery disease, specifically to the left anterior descending artery given the EKG changes and the echo findings. We will adjust management pending results. The patient did receive a heparin therapy bolus and aspirin therapy. We will hold off on Brilinta at this time pending results of the initial angiogram. The risks and benefits were explained to the patient, he understood them and wished to proceed. [id number]/[facility] #: [id number] TIFFANI
[2016-08-09 15:43] LABS: Erythrocyte Sed Rate 12 mm/Hr (0-14)
[2016-08-09] MEDS: Rivaroxaban TAB(*) 20 MG TAB PO SCH (17:06)
[2016-08-09 17:11] LABS: TSH (Thyroid Stimulating Horm) 1.13 mcIU/mL (0.34-5.60)
[2016-08-09] MEDS ORDERED: Heparin VIAL(*) 5000 UNITS/ML VIAL (FIVE THOUSAND) SUBCUT SCH (21:00)
[2016-08-09] MEDS ORDERED: Nitro Patch/OINT Remove PATCH OFF SCH (21:00)
[2016-08-10 05:52] LABS: Hematocrit 39 % (42-52); Hemoglobin 13.3 g/dl (14.0-18.0); Mean Corpuscular HGB Conc 34 g/dl (31-36); Mean Corpuscular Hemoglobin 32 pg (27-31); Mean Corpuscular Volume 94 fL (80-94); Mean Platelet Volume 9 um3 (7.4-10.4); Red Blood Count 4.16 10^6/ul (4.0-5.4); Red Cell Distribution Width 13 % (10.5-15); White Blood Count 9.7 10^3/ul (3.5-10.8)
[2016-08-10 06:07] LABS: BUN/Creatinine Ratio 14.5 (8-20); Calcium 8.9 mg/dL (8.6-10.3); EGFR African American 142.6 (>60); EGFR Non-African American 110.9 (>60); Potassium 4.3 mmol/L (3.5-5.0)
[2016-08-10] MEDS: Diltiazem TAB* 30 MG PO SCH ×2 (06:07→12:12)
[2016-08-10] MEDS: Lisinopril TAB* 5 MG PO SCH (07:39)
[2016-08-10] MEDS: Rivaroxaban TAB(*) 20 MG TAB PO SCH (07:40)
[2016-08-10] MEDS ORDERED: NS 0.9% 1000 ML* 1,000 ML IV SCH (08:00)
--- NOTE | 2016-08-10 08:20 | CATH ---
CARDIAC CATHETERIZATION: DATE OF PROCEDURE: 08/08/16 - ROOM #446 INDICATION FOR THE PROCEDURE: The patient with abnormal EKG suggesting ST segmental elevation in the early precordial leads with ongoing chest discomfort and abnormal troponin; assess for the presence of significant coronary artery disease. PROCEDURE: Coronary arteriography, left heart catheterization, left ventriculography. DESCRIPTION OF PROCEDURE: The patient was interviewed and examined in the emergency room where the risks and benefits were explained. He understood them and wished to proceed. He was brought to the cardiovascular laboratory where a formal time-out was performed. The patient was prepped and draped in a sterile fashion. The right groin area was anesthetized with 1% lidocaine. Right femoral artery was cannulated and a 6.5-curve Kim sheath was placed. The coronary arteriography was performed utilizing a 5-Northern Irish 4-Becky left coronary catheter and a 5-Northern Irish 4-Becky right coronary catheter. Central aortic pressure was recorded using a 5- Northern Irish pigtail catheter advanced to the ascending aorta where the pressure was recorded. The catheter was then passed across the aortic valve into the left ventricle where left ventricular pressure was recorded. Left ventriculography was then performed utilizing a total of 28 cc of Omnipaque dye at a rate of 14 cc/second. The catheter was then pulled back across the aortic valve to recheck gradient. An injection was made into the right femoral sheath to assess the eligibility to utilize a closure device. This was found not to be amenable for closure device; and, as such, the sheath was sutured in place to be removed manually in the intensive care unit. The total contrast used was 90 cc of Omnipaque dye. The radiation exposure included 6.6 minutes of fluoro time. The air kerma radiation was 635 mGy. The DAP radiation was 3646 microgray per meter square. RESULTS: HEMODYNAMIC DATA: Left heart catheterization: Central aortic pressure recorded at 128/92 with a mean of 108. Left ventricular pressure 126 over left ventricular end- diastolic pressure of 15. LEFT VENTRICULOGRAPHY: Performed in the ORTIZ projection, revealed [id number] global hypokinesis with overall EF approximately 40%. CORONARY ARTERIOGRAPHY: A. Left coronary artery: 1. Left main: Widely patent, with no stenosis seen. 2. Left anterior descending artery: The ostium of the left anterior descending artery in the ORTIZ cranial view appeared to have an ostial narrowing that appeared to be 60-65%. Of note - it appeared very smooth in nature; and, as such, intracoronary nitroglycerin was given with resolution of both that narrowing as well as a mid-narrowing within the vessel suggesting that spasm was the mechanism for this. There was perhaps a mild narrowing of 35-40% seen in its worst view. After getting nitroglycerin, it appeared less significant in other views. The LAD supplied a trifurcation marginal branch, which then bifurcated, and then bifurcated a second time supplying the whole anterolateral region. The LAD itself supplied most of the septal perforators and a very distal thin diagonal branch. 3. Circumflex artery: A nondominant vessel supplying a thin first and second obtuse marginal branch ending in a bifurcating mid-obtuse marginal branch. No significant disease was seen through the circumflex artery. B. Right coronary artery: A dominant large vessel supplying multiple acute marginal branches as well as a large PDA and posterior left ventricular branch. There was no significant stenosis seen throughout the course of the right coronary artery. OVERALL ASSESSMENT: Isgh-pi-[id number] global hypokinesis as described above with perhaps the only area of more normal-appearing contractility being within the proximal-most portion of the inferior wall. Overall EF estimated at 40% on regular beat. Reversible spasm seen to ostium of left anterior descending artery with perhaps a residual narrowing of 35-40% in its worst view. No significant coronary artery disease was seen. At this point in time, the patient will be maintained on medication for blood pressure control. A tox screen will be performed to look for the presence of cocaine despite the fact that, on multiple questioning to the patient, he denies exposure to cocaine recently. Further management will be made once we find out whether or not cocaine is indeed present or not. [id number]/[facility] #: [id number] TIFFANI
[2016-08-10] MEDS: NS 0.9% 1000 ML* 1,000 ML IV SCH (08:42)
[2016-08-10] MEDS: Nitroglycerin 0.1 mg/Hr PATCH* (2.5 MG) TRANSDERM SCH (08:42)
[2016-08-10] MEDS: Tiotropium CAP.INH* CAP.INH/18 MCG INH SCH (09:16)
[2016-08-10] MEDS: Mometasone/Formoter 200/5 MDI INH SCH ×2 (09:17→20:44)
[2016-08-10] MEDS ORDERED: fentaNYL* 50 MCG/ML 2 ML VIAL (100 MCG VIAL) ONE (10:30)
[2016-08-10] MEDS ORDERED: Midazolam* 1 MG/ML 5 ML VIAL (5 MG) ONE (10:30)
[2016-08-10] MEDS ORDERED: Naloxone* 0.4 MG/ML 1 ML VIAL ONE (10:31)
[2016-08-10] MEDS ORDERED: Flumazenil* 0.1 MG/ML 5 ML MDV ONE (10:31)
--- NOTE | 2016-08-10 11:27 | PROCNOTE ---
Cardiology Procedure Note Electrical cardioversion 08/10/2016 Patient with atrial fibrillation of 24 hours while inpatient, anticoagulated with xarelto. Asked by Dr. Gomez to perform cardioversion Risks, benefits alternatives discussed and patient wished to proceed Total 6 mg IV versed, 75 mcg IV fentanyl used for sedation Patient received 120J sync x 1 electrical external cardioversion converted from atrial fibrillation to sinus rhythm No complications from procedure.
--- NOTE | 2016-08-10 15:13 | PN ---
Subjective Date of Service: 08/10/16 Interval History: Pt is feeling well. No CP or SOB. He has been up and walking without difficulty. He agrees to staying tonight to be monitored and home tomorrow AM. Objective Active Medications: Albuterol (Ventolin 2.5 Mg/3 Ml Neb.Hannah*) 2.5 mg INH Q2H PRN PRN Reason: SOB/WHEEZING Atorvastatin Calcium (Lipitor*) 40 mg PO 2100 [facility] Diltiazem HCl (Cardizem Cd Cap*) 120 mg PO 1800 [facility] Sodium Chloride (Ns 0.9% 1000 Ml*) 1,000 mls @ 100 mls/hr IV PER RATE [facility] Lisinopril (Prinivil Tab*) 5 mg PO DAILY [facility] Last Admin: 08/10/16 07:39 Dose: 5 mg Mometasone Furoate/Formoterol Fumar (Dulera 200/5 Mdi*) 2 puff INH BID [facility] Last Admin: 08/10/16 09:17 Dose: 2 puff Nitroglycerin (Nitroglycerin 2.5 Mg Patch*) 1 patch TRANSDERM DAILY [facility] Last Admin: 08/10/16 08:42 Dose: 1 patch Pharmacy Profile Note (Nitro Patch/Oint Remove*) 1 note PATCH OFF 2099 [facility] Last Admin: 08/09/16 21:08 Dose: 1 patch Rivaroxaban (Xarelto (*)) 20 mg PO DAILY [facility] Last Admin: 08/10/16 07:40 Dose: 20 mg Tiotropium Louise (Spiriva Cap.Inh*) 1 cap INH DAILY [facility] Last Admin: 08/10/16 09:16 Dose: 1 cap Tramadol HCl (Ultram*) 50 mg PO Q6H PRN PRN Reason: PAIN Last Admin: 08/09/16 04:59 Dose: 50 mg Vital Signs 08/09/16 08/09/16 08/09/16 16:00 19:51 20:00 Temperature 98.7 F Pulse Rate 96 Respiratory 17 17 Rate Blood Pressure 103/71 (mmHg) O2 Sat by Pulse 91 92 Oximetry 08/09/16 08/09/16 08/09/16 20:40 20:41 23:43 Temperature 98.6 F Pulse Rate 82 82 85 Respiratory 20 Rate Blood Pressure 119/75 (mmHg) O2 Sat by Pulse 96 96 96 Oximetry 08/10/16 08/10/16 08/10/16 00:00 04:09 06:10 Temperature 98.9 F Pulse Rate 91 85 Respiratory 20 Rate Blood Pressure 115/73 118/83 (mmHg) O2 Sat by Pulse 96 98 Oximetry 08/10/16 08/10/16 07:13 09:19 Temperature 98.1 F Pulse Rate 105 95 Respiratory 16 16 Rate Blood Pressure 140/71 (mmHg) O2 Sat by Pulse 98 98 Oximetry Oxygen Devices in Use Now: None Appearance: Middle aged male sitting up in bed, NAD Eyes: No Scleral Icterus Ears/Nose/Mouth/Throat: Mucous Membranes Moist Respiratory: Symmetrical Chest Expansion and Respiratory Effort, Clear to Auscultation Cardiovascular: NL Sounds; No Murmurs; No JVD, RRR, No Edema Abdominal: NL Sounds; No Tenderness; No Distention Extremities: No Clubbing, Cyanosis Skin: No Rash or Ulcers, No Nodules or Sclerosis Neurological: Alert and Oriented x 3 Result Diagrams: 08/10/16 05:14 08/10/16 05:15 Additional Lab and Data: Lab Results 08/08/16 08/08/16 08/08/16 Range/Units 22:05 22:05 22:05 WBC 21.6 H (3.5-10.8) 10^3/ul RBC 4.47 (4.0-5.4) 10^6/ul Hgb 14.2 (14.0-18.0) g/dl Hct 42 (42-52) % MCV 94 (80-94) fL MCH 32 H (27-31) pg MCHC 34 (31-36) g/dl RDW 13 (10.5-15) % Plt Count 368 (150-450) 10^3/ul MPV 8 (7.4-10.4) um3 Absolute Neuts (auto) Pending Absolute Lymphs (auto) Pending Absolute Monos (auto) Pending Absolute Eos (auto) Pending Absolute Basos (auto) Pending Absolute Nucleated RBC Pending Neutrophils % 92 H (38-83) % Lymphocytes % 4 L (25-47) % Monocytes % 4 (0-13) % Toxic Granulation 2+ Normal RBC Morphology Not Reportable Hem Pathologist Commnt Pending INR (Anticoag Therapy) 0.99 (0.89-1.11) APTT 21.8 L (26.0-36.3) seconds Sodium 134 (133-145) mmol/L Potassium 4.9 (3.5-5.0) mmol/L Chloride 99 L (101-111) mmol/L Carbon Dioxide 29 (22-32) mmol/L Anion Gap 6 (2-11) mmol/L BUN 16 (6-24) mg/dL Creatinine 0.88 (0.67-1.17) mg/dL Est GFR ( Amer) 120.4 (>60) Est GFR (Non-Af Amer) 93.6 (>60) BUN/Creatinine Ratio 18.2 (8-20) Glucose 117 H (70-100) mg/dL Lactic Acid (0.5-2.0) mmol/L Calcium 9.1 (8.6-10.3) mg/dL Total Bilirubin 0.80 (0.2-1.0) mg/dL AST 96 H (13-39) U/L ALT 47 (7-52) U/L Alkaline Phosphatase 58 (34-104) U/L Total Creatine Kinase Pending CK-MB (CK-2) 84.8 H (0.6-6.3) ng/mL Troponin I 0.06 H* (<0.04) ng/mL B-Natriuretic Peptide ( - 100) pg/mL Total Protein 6.5 (6.4-8.9) g/dL Albumin 3.9 (3.2-5.2) g/dL Globulin 2.6 (2-4) g/dL Albumin/Globulin Ratio 1.5 (1-3) LDL Cholesterol Direct 78 mg/dL 08/08/16 08/08/16 Range/Units 22:05 22:05 WBC (3.5-10.8) 10^3/ul RBC (4.0-5.4) 10^6/ul Hgb (14.0-18.0) g/dl Hct (42-52) % MCV (80-94) fL MCH (27-31) pg MCHC (31-36) g/dl RDW (10.5-15) % Plt Count (150-450) 10^3/ul MPV (7.4-10.4) um3 Absolute Neuts (auto) Absolute Lymphs (auto) Absolute Monos (auto) Absolute Eos (auto) Absolute Basos (auto) Absolute Nucleated RBC Neutrophils % (38-83) % Lymphocytes % (25-47) % Monocytes % (0-13) % Toxic Granulation Normal RBC Morphology Hem Pathologist Commnt INR (Anticoag Therapy) (0.89-1.11) APTT (26.0-36.3) seconds Sodium (133-145) mmol/L Potassium (3.5-5.0) mmol/L Chloride (101-111) mmol/L Carbon Dioxide (22-32) mmol/L Anion Gap (2-11) mmol/L BUN (6-24) mg/dL Creatinine (0.67-1.17) mg/dL Est GFR ( Amer) (>60) Est GFR (Non-Af Amer) (>60) BUN/Creatinine Ratio (8-20) Glucose (70-100) mg/dL Lactic Acid 1.8 (0.5-2.0) mmol/L Calcium (8.6-10.3) mg/dL Total Bilirubin (0.2-1.0) mg/dL AST (13-39) U/L ALT (7-52) U/L Alkaline Phosphatase (34-104) U/L Total Creatine Kinase CK-MB (CK-2) (0.6-6.3) ng/mL Troponin I (<0.04) ng/mL B-Natriuretic Peptide 126 H ( - 100) pg/mL Total Protein (6.4-8.9) g/dL Albumin (3.2-5.2) g/dL Globulin (2-4) g/dL Albumin/Globulin Ratio (1-3) LDL Cholesterol Direct mg/dL Microbiology and Other Data: Microbiology 08/09/16 03:00 Nasal Screen MRSA (PCR)([facility]) - Final Nasal Mrsa Negative Assess/Plan/Problems-Billing Mr Beavers is a 46 yo M who has a h/o tobacco abuse, COPD and ankylosing spondylitis who presented to the ER with chest pain and was found to have ST elevatations concerning for STEMI. - Patient Problems (1) Afib Current Visit: Yes Status: Acute Code(s): I48.91 - UNSPECIFIED ATRIAL FIBRILLATION SNOMED Code(s): 95342354 Comment: Yesterday AM he went into afib. This AM he was cardioverted successfully back to NSR. He has been given 15 days worth of xarelto from Dr. Gomez. It is unclear if he needs to remain on the xarelto longer than that as it seems clear the afib developed after his event. Dr. Gomez will determine at his follow up appt in 1 week if he needs to remain on the xarelto. I have also started diltiazem (changed to CD tonight). (2) Coronary artery vasospasm Current Visit: Yes Status: Acute Code(s): I20.1 - ANGINA PECTORIS WITH DOCUMENTED SPASM SNOMED Code(s): 23720392 Comment: The patient was found to have coronary artery vasospasm of the ostium of the LAD. His urine drug screen was positive for cocaine. I suspect the spasm was secondary to the cocaine. Echo reveals EF of 40-45% with global hypokinesis of the LV. Continue lisinopril. No BBlocker secondary to recent cocaine use. (3) COPD (chronic obstructive pulmonary disease) Current Visit: Yes Status: Acute Code(s): J44.9 - CHRONIC OBSTRUCTIVE PULMONARY DISEASE, UNSPECIFIED SNOMED Code(s): 01061205 Comment: No signs of exacerbation at this time. Continue inhaler/neb regimen. (4) Tobacco abuse Current Visit: Yes Status: Acute Code(s): Z72.0 - TOBACCO USE SNOMED Code( s): 454484794 Comment: Pt states he has been trying to quit. Continue to encourage smoking cessation. (5) Ankylosing spondylitis Current Visit: Yes Status: Acute Code(s): M45.9 - ANKYLOSING SPONDYLITIS OF UNSPECIFIED SITES IN SPINE SNOMED Code(s): 7842726 Comment: Pt does not appear to be on any therapy for this. (6) DVT prophylaxis Current Visit: Yes Status: Acute Code(s): BGJ6897 - SNOMED Code(s): 968780847 Comment: Xarelto (7) Full code status Current Visit: Yes Status: Acute Code(s): Z78.9 - OTHER SPECIFIED HEALTH STATUS SNOMED Code(s): 976758048
[2016-08-10] MEDS ORDERED: Diltiazem CD CAP* 120 MG PO SCH (18:00)
[2016-08-10] MEDS ORDERED: Atorvastatin* 40 MG TAB PO SCH (21:00)
[2016-08-11] MEDS: Tiotropium CAP.INH* CAP.INH/18 MCG INH SCH (07:51)
[2016-08-11] MEDS: Mometasone/Formoter 200/5 MDI INH SCH (07:52)
[2016-08-11 08:01] VITALS: BP 131/78
[2016-08-11] MEDS: Lisinopril TAB* 5 MG PO SCH (10:00)
[2016-08-11] MEDS: Rivaroxaban TAB(*) 20 MG TAB PO SCH (10:27)
--- NOTE | 2016-08-11 11:29 | PN ---
Subjective Date of Service: 08/11/16 - CC: chest pa in Interval History: No chest pain. Never had any palpitations, awareness of atrial fibrillation. The patient states he understands the risks of repeat cocaine use including angina, CT, , ventricular and atrial dysrhythmias. He also volunteered he is committed to smoking cessation. Medications Active Medications: Albuterol (Ventolin 2.5 Mg/3 Ml Neb.Hannah*) 2.5 mg INH Q2H PRN PRN Reason: SOB/WHEEZING Atorvastatin Calcium (Lipitor*) 40 mg PO 2100 [facility] Last Admin: 08/10/16 20:26 Dose: 40 mg Diltiazem HCl (Cardizem Cd Cap*) 120 mg PO 1800 [facility] Last Admin: 08/10/16 17:40 Dose: 120 mg Lisinopril (Prinivil Tab*) 5 mg PO DAILY [facility] Last Admin: 08/11/16 10:00 Dose: 5 mg Mometasone Furoate/Formoterol Fumar (Dulera 200/5 Mdi*) 2 puff INH BID [facility] Last Admin: 08/11/16 07:52 Dose: 2 puff Tiotropium [place] (Spiriva Cap.Inh*) 1 cap INH DAILY [facility] Last Admin: 08/11/16 07:51 Dose: 1 cap Tramadol HCl (Ultram*) 50 mg PO Q6H PRN PRN Reason: PAIN Last Admin: 08/09/16 04:59 Dose: 50 mg Objective Vital Signs: Temp Pulse Resp BP Pulse Ox 98.0 F 78 14 131/78 98 08/11/16 07:48 08/11/16 08:37 08/11/16 08:37 08/11/16 07:48 08/11/16 08:37 Oxygen Devices in Use Now: None Appearance: lean fit appearing male in NAD. Eyes: No Scleral Icterus, PERRLA Ears/Nose/Mouth/Throat: Mucous Membranes Moist Neck: NL Appearance and Movements; NL JVP, Trachea Midline, No Thyroid Enlargement, Masses Respiratory: Symmetrical Chest Expansion and Respiratory Effort, Clear to Auscultation Cardiovascular: NL Sounds; No Murmurs; No JVD, RRR Abdominal: NL Sounds; No Tenderness; No Distention Extremities: No Edema Skin: No Rash or Ulcers Neurological: Alert and Oriented x 3, NL Gait, NL Muscle Strength and Tone Lines/Tubes/Other Access: Clean, Dry and Intact Peripheral IV Laboratory Results: 08/10/16 05:14 08/10/16 05:15 INR (Anticoag Therapy) 0.99 (0.89-1.11) 08/08/16 22:05 APTT 21.8 seconds (26.0-36.3) L 08/08/16 22:05 Total Bilirubin 0.90 mg/dL (0.2-1.0) 08/09/16 04:15 AST 77 U/L (13-39) H 08/09/16 04:15 ALT 41 U/L (7-52) 08/09/16 04:15 Alkaline Phosphatase 54 U/L (34-104) 08/09/16 04:15 CK-MB (CK-2) 30.7 ng/mL (0.6-6.3) H 08/09/16 09:50 B-Natriuretic Peptide 126 pg/mL (-100) H 08/08/16 22:05 Total Protein 5.8 g/dL (6.4-8.9) L 08/09/16 04:15 Albumin 3.6 g/dL (3.2-5.2) 08/09/16 04:15 Globulin 2.2 g/dL (2-4) 08/09/16 04:15 Albumin/Globulin Ratio 1.6 (1-3) 08/09/16 04:15 TSH Cancelled 08/09/16 04:15 08/09/16 08/09/16 04:15 09:50 Troponin I 0.06 H* 0.04 H* Diagnostic Imaging: Cath: vascular spasm, nominal luminal irregularities post nitroglycerine in the 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 Assessment/Plan 46 yo male presented with ST elevation in setting of cocaine use. Stay complicated by paroxysmal atrial fibrillation. Coronaries: NO cocaine, I discussed recommendations, pathophysiology and risks of cocaine personally with the patient. Afib: Discussed risks for recurrence ie smoking and cocaine. Discussed data on stroke risk in general and his stroke risk. Based on prior discussions he continues to be comfortable/prefer discharge with aspirin (aspirin would be for possible CAD, not parox afib). The patient knows to seek assistance if awareness of palpitations/racing/ decreased functional capacity. OK for discharge today. Follow up with cardiology Dr. Gomez for wound check next week.
--- NOTE | 2016-08-12 00:34 | DS ---
DISCHARGE SUMMARY: DATE OF ADMISSION: 08/08/16 DATE OF DISCHARGE: 08/11/16 PRIMARY CARE PROVIDER: Dr. Veliz. PRIMARY DIAGNOSES: 1. Coronary vasospasm. 2. Atrial fibrillation status post DC cardioversion. SECONDARY DIAGNOSES: Include: 1. Tobacco abuse. 2. Chronic obstructive pulmonary disease. 3. History of ankylosing spondylitis. 4. Cocaine use. 5. Compensated systolic heart failure, EF 40%. 6. Rhabdomyolysis, total CK 3527. MEDICATIONS ON DISCHARGE: 1. Tiotropium 1 cap inhaled daily. 2. Dulera 200/5 MDI 2 puffs inhaled twice daily. 3. Lisinopril 5 mg daily. 4. Diltiazem CD 120 mg in the evening. 5. Atorvastatin 40 mg in the evening. 6. Aspirin 81 mg daily. PROCEDURES PERFORMED DURING HOSPITAL STAY: 1. DC cardioversion with atrial fibrillation to normal sinus rhythm on . 2. Cardiac catheterization, final report not up; however, Medicine notes indicate cath showed vasospasm at the ostomy of the LAD, resolved with nitroglycerin with estimated left ventricular EF 35% to 40%. 3. Transthoracic echocardiogram, impression: Mild concentric left ventricular hypertrophy. Mild global hypokinesis of the left ventricle was observed. Mildly decreased left ventricular systolic function with LVEF 40% to 45%. No significant valvular disease. Trace [place], trace [place], trace [place]. No prior for comparison. HISTORY OF PRESENT ILLNESS AND HOSPITAL COURSE: This is a 46-year-old man, past medical history as outlined in the history of present illness on the day of admission, active smoker 1 pack per day, who was on previously no medication , no contact with PCP or medical system, presented to the hospital with non- radiating right-sided chest pressure, thought to have ST elevated myocardial infarction on presentation to the hospital, where a STEMI Team was called. The patient was brought for cardiac catheterization with Dr. Gomez, who indicated ostial vasospasm resolved with nitroglycerin, thought to be in the setting of cocaine use. The patient denied active cocaine use or abuse, thought that someone "slipped him cocaine." His chest pain resolved; however, developed atrial fibrillation, which he was started on Cardizem and received DC cardioversion, 08/10/16. Remained in normal sinus rhythm, status post that procedure. Ongoing discussions with Cardiology and the patient were had in determination of best anticoagulant for patient. In the setting of patient's preference and low CHADS-VASC score, he will be discharged on low-dose aspirin daily and on full dose anticoagulation. He has a followup with Dr. Gomez next week and then he is to follow up with Dr. Benavides a month after that. No other complications during the patient's hospital stay. He was started on medication for COPD, hypertension, as well as newly diagnosed compensated systolic heart failure. His medications include statin, SETH inhibitor and aspirin. The beta daria was held in the setting of recent cocaine use. At followup, please; 1. Ensure adequate followup with motion picture commentator. 2. Ensure adequate blood pressure and heart rate control. 3. Ensure continued medication adherence. 4. The patient feels confident that he is going to stop smoking at this point. Declines any assistance for medications. Please continue to encourage smoking cessation. 5. No other specific labs or vitals that need followup. Reasons to return to the hospital including but not limited to recurrent or worsening symptoms, chest pain, shortness of breath, nausea, vomiting, lightheadedness, loss of consciousness, near loss of consciousness, bleeding from any source, diarrhea, fever, chills, night sweats, inability to obtain or tolerate medications discussed with the patient, he acknowledged understanding. TIME SPENT: Greater than 45 minutes was spent on discharge of this patient, greater than half was spent [id number] with the patient. CC: Dr. Veliz; Kwaku Gomez MD; Andrea Benavides DO* [id number]/[facility] #: [id number] [facility]
== END 2016-08-11 11:30 | disposition home or self-care (01) | DRG 192 ==
LOC: ED 21:15 → CHICATH 22:44 → ICU 23:52 → MEDTELE 08-09 10:39
PROVIDERS: ADMIT Internal Medicine Cardiovascular Disease; ATTEND Internal Medicine
PROC: B2151ZZ Fluoroscopy of Left Heart using Low Osmolar Contrast (ICD-10-PCS; 2016-08-08)
PROC: 4A023N7 Measurement of Cardiac Sampling and Pressure, Left Heart, Percutaneous Approach (ICD-10-PCS; 2016-08-08)
PROC: 5A2204Z Restoration of Cardiac Rhythm, Single (ICD-10-PCS; 2016-08-08)
PROC: B2111ZZ Fluoroscopy of Multiple Coronary Arteries using Low Osmolar Contrast (ICD-10-PCS; principal; 2016-08-08 15:00)
DX: I20.1 Angina pectoris with documented spasm (principal); I42.9 Cardiomyopathy, unspecified; I50.20 Unspecified systolic (congestive) heart failure; I11.0 Hypertensive heart disease with heart failure; M62.82 Rhabdomyolysis; M47.9 Spondylosis, unspecified; M19.90 Unspecified osteoarthritis, unspecified site; M45.9 Ankylosing spondylitis of unspecified sites in spine; F17.210 Nicotine dependence, cigarettes, uncomplicated; D72.829 Elevated white blood cell count, unspecified; I48.0 Paroxysmal atrial fibrillation; F14.988 Cocaine use, unspecified with other cocaine-induced disorder; I08.2 Rheumatic disorders of both aortic and tricuspid valves; Z88.2 Allergy status to sulfonamides; Z82.49 Family history of ischemic heart disease and other diseases of the circulatory system; Z83.3 Family history of diabetes mellitus; Z79.82 Long term (current) use of aspirin
CPT/HCPCS: 36415; 71010; 80048; 80053; 80307; 82550; 82553; 83605; 83721; 83880; 84443; 84484; 85025; 85060; 85610; 85652; 85730; 86140; 87040; 87641; 92960; 93005; 93306; 94640; 94760; 99406; A9270-GY; J1644; J2001; J2250; J2310; J2543; J3010

== ENCOUNTER 2019-01-02 13:21 | Emergency (ER) | payer SELFPAY ==
--- NOTE | 2019-01-02 15:07 | ED ---
Neck Pain - HPI Summary HPI Summary: This patient is a 48 year old male presenting to [facility] with a chief complaint of neck pain. Pt stated that his neck has been bothering him and has been giving him FIGUEROA and he is tender up underneath his skull. He states this is accompanied by periodic numbness/tingling. He states he gets shooting pains in his arms. - History of Current Complaint Chief Complaint: EDNeckComplaint Stated Complaint: NECK PAIN PER PT Time Seen by Provider: 01/02/19 14:56 Hx Obtained From: Patient Severity Initially: Moderate Severity Currently: Moderate Pain Intensity: 4 Pain Scale Used: 0-10 Numeric - Allergies/Home Medications Allergies/Adverse Reactions: Allergies Allergy/AdvReac Type Severity Reaction Status Date / Time Sulfa (Sulfonamide Allergy Difficulty Verified 01/02/19 13:23 Antibiotics) Breathing PMH/Surg Hx/FS Hx/Imm Hx Endocrine/Hematology History: Denies: Hx Diabetes Cardiovascular History: Denies: Hx Hypertension, Hx Myocardial Infarction Respiratory History: Reports: Hx Asthma, Hx Chronic Obstructive Pulmonary Disease (COPD) Musculoskeletal History: Reports: Hx Arthritis, Other Musculoskeletal History - spondylosis in back Sensory History: Denies: Hx Contacts or Glasses, Hx Hearing Aid Opthamlomology History: Denies: Hx Contacts or Glasses Psychiatric History: Denies: Hx Eating Disorder, Hx of Violent Episodes Against Others - Immunization History Date of Tetanus Vaccine: unknown Infectious Disease History: No Infectious Disease History: Denies: Traveled Outside the [place] in Last 30 Days - Family History Known Family History: Positive: Cardiac Disease - Social History Alcohol Use: Weekly Alcohol Amount: 1 pint daily Substance Use Type: Reports: None, Other Substance Use Comment - Amount & Last Used: unknown Smoking Status (MU): Heavy Every Day Tobacco Smoker Type: Cigarettes Length of Time of Smoking/Using Tobacco: 30 yrs Have You Smoked in the Last Year: Yes Review of Systems Positive: Other - Neck pain, shooting pain to arms Positive: Headache, Weakness, Numbness All Other Systems Reviewed And Are Negative: Yes Physical Exam - Summary Physical Exam Summary: Constitutional: Well-developed, Well-nourished, Alert. (-) Distressed Skin: Warm, Dry HENT: Normocephalic; Atraumatic Eyes: Conjunctiva normal Neck: Musculoskeletal has some pain in his neck when he ranges it. Pain in the occipital protuberance. (-) JVD, (-) Stridor, (-) Tracheal deviation Cardio: Rhythm regular, rate normal, Heart sounds normal; Intact distal pulses; The pedal pulses are 2+ and symmetric. Radial pulses are 2+ and symmetric. (-) Murmur Pulmonary/Chest wall: Effort normal. (-) Respiratory distress, (-) Wheezes, (-) Rales Abd: Soft, (-) tenderness, (-) Distension, (-) Guarding, (-) Rebound Musculoskeletal: (-) Edema Lymph: (-) Cervical adenopathy Neuro: Alert, Oriented x3 Psych: Mood and affect Normal Triage Information Reviewed: Yes Vital Signs On Initial Exam: Initial Vitals Temp Pulse Resp BP Pulse Ox 98.8 F 96 18 159/114 100 01/02/19 13:23 01/02/19 13:23 01/02/19 13:23 01/02/19 13:23 01/02/19 13:23 Vital Signs Reviewed: Yes Diagnostics - Vital Signs Vital Signs Temp Pulse Resp BP Pulse Ox 01/02/19 14:55 75 98 01/02/19 14:54 72 175/102 98 01/02/19 13:23 98.8 F 96 18 159/114 100 - Laboratory Lab Statement: Any lab studies that have been ordered have been reviewed, and results considered in the medical decision making process. Re-Evaluation - Re-Evaluation First Eval Re-Evaluation Time: 15:38 Change: Improved Comment: Pain has completely relieved following digital block. Neck Course/Dx - Course Course Of Treatment: Patient is here with posterior headache. Patient symptoms are consistent with cervical radiculopathy versus occipital neuralgia. Patient had a occipital nerve block performed which cured his pain. Due to this, patient was given neurology follow-up for possible workup and treatment of his presumed occipital neuralgia - Diagnoses Provider Diagnoses: Occipital neuralgia Discharge ED - Sign-Out/Discharge Documenting (check all that apply): Patient Departure - Discharge Patient Received Moderate/Deep Sedation with Procedure: No - Discharge Plan Condition: Stable Disposition: HOME Patient Education Materials: Acute Headache (ED) Referrals: Kimberlee Key MD [Medical Doctor] - Additional Instructions: Follow up with Neurology. You may have occipital neuralgia. Take Ibuprofen or Tylenol for your headaches. - Billing Disposition and Condition Condition: STABLE Disposition: Home - Attestation Statements Document Initiated by Kelsi: Yes Documenting Scribe: Carl Breaux Provider For Whom Scribe is Documenting (Include Credential): Kawme Street MD Scribe Attestation: I, Carl Breaux, scribed for Kwame Street MD on 01/02/19 at 1736. Scribe Documentation Reviewed: Yes Provider Attestation: The documentation as recorded by the Carl huerta accurately reflects the service I personally performed and the decisions made by me, Kwame Street MD Status of Scribe Document: Viewed
[2019-01-02] MEDS ORDERED: Lidocaine 1% MPF ** 5 ML VIAL INJ ONE (15:08)
[2019-01-02 15:48] VITALS: BP 174/109
== END 2019-01-02 15:45 | disposition home or self-care (01) ==
LOC: ED 13:21
DX: M54.81 Occipital neuralgia (principal); J44.9 Chronic obstructive pulmonary disease, unspecified; M19.90 Unspecified osteoarthritis, unspecified site; F17.210 Nicotine dependence, cigarettes, uncomplicated; Z79.82 Long term (current) use of aspirin; Z79.899 Other long term (current) drug therapy; Z88.2 Allergy status to sulfonamides
CPT/HCPCS: 99282